=== PATIENT | male | born 1985 | race Caucasian/White ===

== ENCOUNTER 2018-02-24 09:17 | Inpatient (IN) ==
--- NOTE | 2018-02-24 09:44 | Emergency Department Note ---
Disposition Clinical Impression: Pulmonary emboli Qualifiers: Pulmonary embolism type: other Chronicity: acute Acute cor pulmonale presence: without acute cor pulmonale Qualified Code(s): I26.99 - Other pulmonary embolism without acute cor pulmonale Disposition: Admitted As Inpatient Condition: Fair Referrals: Jo-Ann Lauren CNP [Primary Care Provider] - Forms: ED Satisfaction Letter Time of Disposition: 11:48 General Adult HPI - General Chief complaint: ED Extremity Injury, Upper Stated complaint: swelling hands, legs, back pain Time Seen by Provider: 02/24/18 09:26 Source: patient Limitations: no limitations Nursing Notes Reviewed: Yes Vital Signs Reviewed: Yes - History of Present Illness HPI Narrative: Nontoxic-appearing 32-year-old male presents for multiple complaints. He complains of polyarthralgias of the bilateral wrists, hips, knees, and ankles without injury. He complains of swelling of the bilateral hands as well as numbness and tingling of the hands. He also complains of pain with inspiration but denies any shortness of breath, cough, or hemoptysis. He denies any fevers or rashes. He denies any abdominal pain, nausea, vomiting, or diarrhea. Onset (ago): day(s) Pain Severity: severe Pain Scale: 10 Quality: sharp Consistency: Worsening Improves with: nothing Worsens with: movement Associated symptoms: Denies: cough, diaphoresis, fever/chills, nausea/vomiting, rash, shortness of breath - Related Data Home Medications Medication Instructions Recorded Confirmed Escitalopram [Lexapro] 10 mg PO DAILY 08/28/17 08/28/17 SitaGLIPtin [Januvia] 100 mg PO DAILY 08/28/17 08/28/17 Zolpidem [Ambien] 10 mg PO HS PRN 08/28/17 08/28/17 Previous Rx's Medication Instructions Recorded OxyCODONE/APAP 10/325 [Percocet 1 each PO Q6HR PRN #24 tablet 08/28/17 10/325 MG] Allergies Allergy/AdvReac Type Severity Reaction Status Date / Time No Known Allergies Allergy Verified 08/28/17 12:23 All systems ED: reviewed and negative except as stated. Constitutional: Denies: fever, chills, weakness, weight change Eyes: Denies: eye pain, eye discharge, vision change ENT ED: Denies: ear pain, throat pain, dental pain, hearing loss, epistaxis, congestion, dysphagia Cardiovascular: Denies: chest pain, palpitations, dyspnea on exertion, edema, syncope Respiratory: Denies: cough, dyspnea, wheezes, hemoptysis, stridor Gastrointestinal: Denies: abdominal pain, nausea, vomiting, diarrhea, constipation, hematemesis, melena, hematochezia Genitourinary: Denies: urgency, dysuria, frequency, hematuria Musculoskeletal: Reports: as per HPI, arthralgia, other (Bilateral hand swelling ). Denies: back pain, neck pain, myalgia Integumentary: Denies: rash, abrasion, lesions Neurological: Denies: headache, weakness, numbness, paresthesias, confusion, abnormal gait, vertigo Psychiatric: Denies: anxiety, depression, suicidal thoughts, homicidal thoughts , auditory hallucinations, visual hallucinations Endocrine: Denies: fatigue Hematological/Lymphatic: Denies: easy bleeding, easy bruising Allergic/Immunologic: Denies: facial swelling, urticaria Past Medical History - Past Medical History Attestation: Yes The following information was validated with the patient. Source: patient, nursing notes reviewed Medical history: Reports: arthritis, diabetes, hypertension Surgical history: Reports: other Psychiatric history: Reports: depression - Social History Smoking Status: Never smoker Smokeless Tobacco Status: No Alcohol use: Reports: none Drug use: Reports: none Physical Exam - General Limitations: no limitations General appearance: alert, appears intoxicated - Head Head exam: atraumatic, normocephalic, normal inspection - Eye Eye exam: Present: normal appearance, PERRL, EOMI. Absent: nystagmus - ENT ENT exam: mucous membranes moist - Neck Neck exam: Present: normal inspection, full ROM, trachea midline - Chest Chest inspection: Present: normal inspection, symmetric chest wall rise - Respiratory Respiratory exam: Present: normal lung sounds bilaterally. Absent: respiratory distress, wheezes, stridor, accessory muscle use, prolonged expiratory phase - Cardiovascular Cardiovascular exam: Present: regular rate, normal rhythm, normal heart sounds - Abdominal Exam Abdominal exam: Present: soft, normal bowel sounds. Absent: tenderness, distention, guarding, rebound - Extremities Exam Extremities exam: Present: normal inspection, full ROM, pedal edema (1+ pretibial edema noted bilaterally). Absent: tenderness - Neurological Exam Neurological exam: Present: alert, oriented X3 - Psychiatric Psychiatric exam: Present: normal affect, normal mood - Skin Skin exam: Present: warm, dry, intact, normal color. Absent: rash Course Course Narrative: 1147: I spoke with Dr. Cannon of the hospitalist services accepted the patient for admission. I discussed this plan with Dr. Tk Jackson. Dr. Tk Jackson has had a [id number] evaluation with patient and agrees with this plan. Vital Signs Temperature 97.4 F L 02/24/18 09:20 Pulse Rate 82 02/24/18 09:20 Respiratory Rate 18 02/24/18 09:20 Blood Pressure 123/78 02/24/18 09:20 O2 Sat by Pulse Oximetry 95 02/24/18 09:20 Temperature 97.4 F L 02/24/18 09:25 Pulse Rate 93 02/24/18 10:58 Respiratory Rate 18 02/24/18 10:58 Blood Pressure 153/79 02/24/18 10:58 O2 Sat by Pulse Oximetry 98 02/24/18 10:58 Oxygen Delivery Oxygen Delivery Room Air Medical Decision Making - Medical Records Medical records reviewed: Yes I reviewed the patient's medical records. - Lab Data Lab results reviewed: Yes I reviewed the patient's lab results. Result diagrams: 02/24/18 09:37 02/24/18 09:37 Lab Results 02/24/18 02/24/18 02/24/18 Range/Units 09:37 09:37 09:37 WBC 9.4 (4.3-11.1) K/mcL RBC 4.44 (4.19-5.50) M/mcL Hgb 13.4 (12.9-16.9) g/dL Hct 38.4 (37.5-50.1) % MCV 86.5 (83.0-100.0) fL MCH 30.2 (28.0-33.3) pg MCHC 34.9 (31.6-35.5) g/dL RDW 13.7 (11.5-14.5) % Plt Count 249 (140-400) K/mcL MPV 8.9 L (9.4-12.4) fL Immature Gran % 0.3 (0-4) % Seg Neutrophils % 62.0 % Lymphocytes % 25.5 % Monocytes % 11.1 % Eosinophils % 0.7 % Basophils % 0.4 % Neutrophils # 5.8 (1.6-8.9) K/mcL Lymphocytes # 2.4 (0.6-4.6) K/mcL Monocytes # 1.0 (0.0-1.3) K/mcL Eosinophils # 0.1 (0.0-0.6) K/mcL Basophils # 0.0 (0.0-0.2) K/mcL ESR 66 H (0-10) mm/hr D-Dimer 4995 H (0-500) ng/mLFEU Sodium (136-145) mEq/L Potassium (3.5-5.1) mEq/L Chloride (98-107) mEq/L Carbon Dioxide (23-29) mEq/L BUN (6-20) mg/dL Creatinine (0.70-1.30) mg/dL Est GFR ( Amer) (> 60) Est GFR (Non-Af Amer) (> 60) BUN/Creatinine Ratio (6-26) Glucose (70-105) mg/dL Calculated Osmolality (280-300) Lactic Acid (0.5-2.2) mmol/L Calcium (8.6-10.3) mg/dL Total Bilirubin (0.3-1.0) mg/dL AST (13-39) Units/L ALT (7-52) Units/L Alkaline Phosphatase (34-104) Units/L Creatine Kinase (30-223) Units/L Troponin I (< 0.04) ng/mL C-Reactive Protein (Less than 10) mg/L B-Natriuretic Peptide (Less than 100) pg/mL Serum Total Protein (6.4-8.9) g/dL Albumin (3.5-5.7) g/dL Globulin (2.4-3.5) g/dL Albumin/Globulin Ratio (1.1-2.2) Urine Color (Yellow) Urine Clarity (Clear) Urine pH (5.0-8.0) pH Units Ur Specific [place] (1.010-1.025) Urine Protein (Neg-Trace) mg/dL Urine Glucose (UA) (Normal) mg/dL Urine Ketones (Negative) mg/dL Urine Blood (Negative) Urine Nitrite (Negative) Urine Bilirubin (Negative) Urine Urobilinogen (Normal) mg/dL Ur Leukocyte Esterase (Negative) Urine Microscopic RBC (0-3) per hpf Urine Microscopic WBC (0-3) per hpf Ur Squamous Epith Cells (None-Few) per lpf Urine Bacteria (None-Few) per hpf Hyaline Casts (None-Few) per lpf Ur Culture Indicated? (NO) 02/24/18 02/24/18 02/24/18 Range/Units 09:37 09:37 09:51 WBC (4.3-11.1) K/mcL RBC (4.19-5.50) M/mcL Hgb (12.9-16.9) g/dL Hct (37.5-50.1) % MCV (83.0-100.0) fL MCH (28.0-33.3) pg MCHC (31.6-35.5) g/dL RDW (11.5-14.5) % Plt Count (140-400) K/mcL MPV (9.4-12.4) fL Immature Gran % (0-4) % Seg Neutrophils % % Lymphocytes % % Monocytes % % Eosinophils % % Basophils % % Neutrophils # (1.6-8.9) K/mcL Lymphocytes # (0.6-4.6) K/mcL Monocytes # (0.0-1.3) K/mcL Eosinophils # (0.0-0.6) K/mcL Basophils # (0.0-0.2) K/mcL ESR (0-10) mm/hr D-Dimer (0-500) ng/mLFEU Sodium 132 L (136-145) mEq/L Potassium 3.9 (3.5-5.1) mEq/L Chloride 102 (98-107) mEq/L Carbon Dioxide 23 (23-29) mEq/L BUN 13 (6-20) mg/dL Creatinine 0.73 (0.70-1.30) mg/dL Est GFR ( Amer) > 60 (> 60) Est GFR (Non-Af Amer) > 60 (> 60) BUN/Creatinine Ratio 18 (6-26) Glucose 161 H (70-105) mg/dL Calculated Osmolality 278 L (280-300) Lactic Acid 0.9 (0.5-2.2) mmol/L Calcium 8.8 (8.6-10.3) mg/dL Total Bilirubin 0.6 (0.3-1.0) mg/dL AST 15 (13-39) Units/L ALT 20 (7-52) Units/L Alkaline Phosphatase 61 (34-104) Units/L Creatine Kinase 95 (30-223) Units/L Troponin I < 0.03 (< 0.04) ng/mL C-Reactive Protein 108 H (Less than 10) mg/L B-Natriuretic Peptide 19 (Less than 100) pg/mL Serum Total Protein 7.8 (6.4-8.9) g/dL Albumin 3.7 (3.5-5.7) g/dL Globulin 4.1 H (2.4-3.5) g/dL Albumin/Globulin Ratio 0.9 L (1.1-2.2) Urine Color (Yellow) Urine Clarity (Clear) Urine pH (5.0-8.0) pH Units Ur Specific [place] (1.010-1.025) Urine Protein (Neg-Trace) mg/dL Urine Glucose (UA) (Normal) mg/dL Urine Ketones (Negative) mg/dL Urine Blood (Negative) Urine Nitrite (Negative) Urine Bilirubin (Negative) Urine Urobilinogen (Normal) mg/dL Ur Leukocyte Esterase (Negative) Urine Microscopic RBC (0-3) per hpf Urine Microscopic WBC (0-3) per hpf Ur Squamous Epith Cells (None-Few) per lpf Urine Bacteria (None-Few) per hpf Hyaline Casts (None-Few) per lpf Ur Culture Indicated? (NO) 02/24/18 Range/Units 10:06 WBC (4.3-11.1) K/mcL RBC (4.19-5.50) M/mcL Hgb (12.9-16.9) g/dL Hct (37.5-50.1) % MCV (83.0-100.0) fL MCH (28.0-33.3) pg MCHC (31.6-35.5) g/dL RDW (11.5-14.5) % Plt Count (140-400) K/mcL MPV (9.4-12.4) fL Immature Gran % (0-4) % Seg Neutrophils % % Lymphocytes % % Monocytes % % Eosinophils % % Basophils % % Neutrophils # (1.6-8.9) K/mcL Lymphocytes # (0.6-4.6) K/mcL Monocytes # (0.0-1.3) K/mcL Eosinophils # (0.0-0.6) K/mcL Basophils # (0.0-0.2) K/mcL ESR (0-10) mm/hr D-Dimer (0-500) ng/mLFEU Sodium (136-145) mEq/L Potassium (3.5-5.1) mEq/L Chloride (98-107) mEq/L Carbon Dioxide (23-29) mEq/L BUN (6-20) mg/dL Creatinine (0.70-1.30) mg/dL Est GFR ( Amer) (> 60) Est GFR (Non-Af Amer) (> 60) BUN/Creatinine Ratio (6-26) Glucose (70-105) mg/dL Calculated Osmolality (280-300) Lactic Acid (0.5-2.2) mmol/L Calcium (8.6-10.3) mg/dL Total Bilirubin (0.3-1.0) mg/dL AST (13-39) Units/L ALT (7-52) Units/L Alkaline Phosphatase (34-104) Units/L Creatine Kinase (30-223) Units/L Troponin I (< 0.04) ng/mL C-Reactive Protein (Less than 10) mg/L B-Natriuretic Peptide (Less than 100) pg/mL Serum Total Protein (6.4-8.9) g/dL Albumin (3.5-5.7) g/dL Globulin (2.4-3.5) g/dL Albumin/Globulin Ratio (1.1-2.2) Urine Color Dark Yellow (Yellow) Urine Clarity Clear (Clear) Urine pH 5.5 (5.0-8.0) pH Units Ur Specific [place] 1.030 H (1.010-1.025) Urine Protein Trace (Neg-Trace) mg/dL Urine Glucose (UA) Normal (Normal) mg/dL Urine Ketones Trace H (Negative) mg/dL Urine Blood Negative (Negative) Urine Nitrite Negative (Negative) Urine Bilirubin Negative (Negative) Urine Urobilinogen Normal (Normal) mg/dL Ur Leukocyte Esterase Negative (Negative) Urine Microscopic RBC 0-3 (0-3) per hpf Urine Microscopic WBC 5-15 H (0-3) per hpf Ur Squamous Epith Cells Many H (None-Few) per lpf Urine Bacteria None Seen (None-Few) per hpf Hyaline Casts Few (None-Few) per lpf Ur Culture Indicated? NO (NO) - Radiology Data Radiology results reviewed: Yes I reviewed the patient's radiology results. - EKG Data EKG #1 EKG attestation: Yes I reviewed and interpreted this EKG. EKG results narrative: EKG reviewed by Dr. Terence Jackson as well. EKG shows a sinus rhythm at a rate of 83 bpm. DE interval 172, QRS duration 105, QT/QTc interval 347/387. No ectopy noted. No STEMI. HEENT is when compared to an EKG dated from 08/13/17.
[2018-02-24 10:08] LABS: Basophils % 0.4 %; Eosinophils # 0.1 K/mcL (0.0-0.6); Eosinophils % 0.7 %; Hematocrit 38.4 % (37.5-50.1); Hemoglobin 13.4 g/dL (12.9-16.9); Immature Granulocytes % 0.3 % (0-4); Lymphocytes # 2.4 K/mcL (0.6-4.6); Lymphocytes % 25.5 %; Mean Corpuscular HGB Conc 34.9 g/dL (31.6-35.5); Mean Corpuscular Hemoglobin 30.2 pg (28.0-33.3); Mean Corpuscular Volume 86.5 fL (83.0-100.0); Mean Platelet Volume 8.9 fL (9.4-12.4); Monocytes % 11.1 %; Neutrophils # 5.8 K/mcL (1.6-8.9); Platelet Count 249 K/mcL (140-400); Red Blood Count 4.44 M/mcL (4.19-5.50); Red Cell Distribution Width 13.7 % (11.5-14.5)
[2018-02-24 10:18] LABS: Bilirubin,Urine Negative (Negative); Blood,Urine Negative (Negative); Clarity,Urine Clear (Clear); Color,Urine Dark Yellow (Yellow); Glucose,Urine (UA) Normal (Normal); Ketones,Urine Trace mg/dL (Negative); Leukocyte Esterase,Urine Negative (Negative); Nitrite,Urine Negative (Negative); PH,Urine 5.5 pH Units (5.0-8.0); Protein,Urine Trace mg/dL (Neg-Trace); Urobilinogen,Urine Normal (Normal)
[2018-02-24 10:23] LABS: Bacteria,Urine None Seen per hpf (None-Few); Hyaline Casts,Urine Few per lpf (None-Few); RBC,Urine 0-3 per hpf (0-3); Squamous Epithelial Cell,Urine Many per lpf (None-Few)
[2018-02-24] MEDS ORDERED: Isovue-370 500 ML INFUS..BTL IV ONE (10:26)
[2018-02-24 10:29] LABS: Troponin I < 0.03 ng/mL (< 0.04)
[2018-02-24 10:31] LABS: Alanine Aminotransferase 20 Units/L (7-52); Albumin 3.7 g/dL (3.5-5.7); Albumin/Globulin Ratio 0.9 (1.1-2.2); Alkaline Phosphatase 61 Units/L (34-104); Aspartate Amino Transferase 15 Units/L (13-39); BUN/Creatinine Ratio 18 (6-26); Bilirubin,Total 0.6 mg/dL (0.3-1.0); Blood Urea Nitrogen 13 mg/dL (6-20); Calcium 8.8 mg/dL (8.6-10.3); Carbon Dioxide 23 mEq/L (23-29); Chloride 102 mEq/L (98-107); Creatine Kinase 95 Units/L (30-223); Globulin 4.1 g/dL (2.4-3.5); Glucose 161 mg/dL (70-105); Osmolality,Calculated 278 (280-300); Potassium 3.9 mEq/L (3.5-5.1); Sodium 132 mEq/L (136-145); Total Protein 7.8 g/dL (6.4-8.9); eGFR For African Americans > 60 (> 60); eGFR For Non-African Americans > 60 (> 60)
[2018-02-24 11:01] LABS: C-Reactive Protein 108 mg/L (Less than 10)
[2018-02-24] MEDS ORDERED: *HR* Heparin 5,000 UNIT/ML VIAL IVP PRN ×2 (11:32)
[2018-02-24] MEDS ORDERED: *HR* Heparin 5,000 UNIT/ML VIAL IVP ONE (11:32)
--- NOTE | 2018-02-24 11:39 | Emergency Department Note ---
Disposition Clinical Impression: Pulmonary emboli Qualifiers: Pulmonary embolism type: other Chronicity: acute Acute cor pulmonale presence: without acute cor pulmonale Qualified Code(s): I26.99 - Other pulmonary embolism without acute cor pulmonale Disposition: Admitted As Inpatient Forms: ED Satisfaction Letter General Adult HPI - General Chief complaint: ED Extremity Injury, Upper Stated complaint: swelling hands, legs, back pain Time Seen by Provider: 02/24/18 09:26 Source: patient Limitations: no limitations - History of Present Illness Pain Scale: 10 Quality: sharp Improves with: nothing Worsens with: movement Associated symptoms: Denies: cough, diaphoresis, fever/chills, nausea/vomiting, rash, shortness of breath - Related Data Home Medications Medication Instructions Recorded Confirmed Escitalopram [Lexapro] 10 mg PO DAILY 08/28/17 08/28/17 SitaGLIPtin [Januvia] 100 mg PO DAILY 08/28/17 08/28/17 Zolpidem [Ambien] 10 mg PO HS PRN 08/28/17 08/28/17 Previous Rx's Medication Instructions Recorded OxyCODONE/APAP 10/325 [Percocet 1 each PO Q6HR PRN #24 tablet 08/28/17 10/325 MG] Allergies Allergy/AdvReac Type Severity Reaction Status Date / Time No Known Allergies Allergy Verified 08/28/17 12:23 Constitutional: Denies: fever, chills, weakness, weight change Eyes: Denies: eye pain, eye discharge, vision change ENT ED: Denies: ear pain, throat pain, dental pain, hearing loss, epistaxis, congestion, dysphagia Cardiovascular: Denies: chest pain, palpitations, dyspnea on exertion, edema, syncope Respiratory: Denies: cough, dyspnea, wheezes, hemoptysis, stridor Gastrointestinal: Denies: abdominal pain, nausea, vomiting, diarrhea, constipation, hematemesis, melena, hematochezia Genitourinary: Denies: urgency, dysuria, frequency, hematuria Musculoskeletal: Reports: as per HPI, arthralgia, other (Bilateral hand swelling ). Denies: back pain, neck pain, myalgia Integumentary: Denies: rash, abrasion, lesions Neurological: Denies: headache, weakness, numbness, paresthesias, confusion, abnormal gait, vertigo Psychiatric: Denies: anxiety, depression, suicidal thoughts, homicidal thoughts , auditory hallucinations, visual hallucinations Endocrine: Denies: fatigue Hematological/Lymphatic: Denies: easy bleeding, easy bruising Allergic/Immunologic: Denies: facial swelling, urticaria Past Medical History - Past Medical History Medical history: Reports: arthritis, diabetes, hypertension Surgical history: Reports: other Psychiatric history: Reports: depression - Social History Smoking Status: Never smoker Smokeless Tobacco Status: No Alcohol use: Reports: none Drug use: Reports: none Physical Exam - General Limitations: no limitations General appearance: alert, appears intoxicated Course Vital Signs Temperature 97.4 F L 02/24/18 09:20 Pulse Rate 82 02/24/18 09:20 Respiratory Rate 18 02/24/18 09:20 Blood Pressure 123/78 02/24/18 09:20 O2 Sat by Pulse Oximetry 95 02/24/18 09:20 Temperature 97.4 F L 02/24/18 09:25 Pulse Rate 93 02/24/18 10:58 Respiratory Rate 18 02/24/18 10:58 Blood Pressure 153/79 02/24/18 10:58 O2 Sat by Pulse Oximetry 98 02/24/18 10:58 Oxygen Delivery Oxygen Delivery Room Air Medical Decision Making - Lab Data Result diagrams: 02/24/18 09:37 02/24/18 09:37 Lab Results 02/24/18 02/24/18 02/24/18 Range/Units 09:37 09:37 09:37 WBC 9.4 (4.3-11.1) K/mcL RBC 4.44 (4.19-5.50) M/mcL Hgb 13.4 (12.9-16.9) g/dL Hct 38.4 (37.5-50.1) % MCV 86.5 (83.0-100.0) fL MCH 30.2 (28.0-33.3) pg MCHC 34.9 (31.6-35.5) g/dL RDW 13.7 (11.5-14.5) % Plt Count 249 (140-400) K/mcL MPV 8.9 L (9.4-12.4) fL Immature Gran % 0.3 (0-4) % Seg Neutrophils % 62.0 % Lymphocytes % 25.5 % Monocytes % 11.1 % Eosinophils % 0.7 % Basophils % 0.4 % Neutrophils # 5.8 (1.6-8.9) K/mcL Lymphocytes # 2.4 (0.6-4.6) K/mcL Monocytes # 1.0 (0.0-1.3) K/mcL Eosinophils # 0.1 (0.0-0.6) K/mcL Basophils # 0.0 (0.0-0.2) K/mcL ESR 66 H (0-10) mm/hr D-Dimer 4995 H (0-500) ng/mLFEU Sodium (136-145) mEq/L Potassium (3.5-5.1) mEq/L Chloride (98-107) mEq/L Carbon Dioxide (23-29) mEq/L BUN (6-20) mg/dL Creatinine (0.70-1.30) mg/dL Est GFR ( Amer) (> 60) Est GFR (Non-Af Amer) (> 60) BUN/Creatinine Ratio (6-26) Glucose (70-105) mg/dL Calculated Osmolality (280-300) Lactic Acid (0.5-2.2) mmol/L Calcium (8.6-10.3) mg/dL Total Bilirubin (0.3-1.0) mg/dL AST (13-39) Units/L ALT (7-52) Units/L Alkaline Phosphatase (34-104) Units/L Creatine Kinase (30-223) Units/L Troponin I (< 0.04) ng/mL C-Reactive Protein (Less than 10) mg/L B-Natriuretic Peptide (Less than 100) pg/mL Serum Total Protein (6.4-8.9) g/dL Albumin (3.5-5.7) g/dL Globulin (2.4-3.5) g/dL Albumin/Globulin Ratio (1.1-2.2) Urine Color (Yellow) Urine Clarity (Clear) Urine pH (5.0-8.0) pH Units Ur Specific [place] (1.010-1.025) Urine Protein (Neg-Trace) mg/dL Urine Glucose (UA) (Normal) mg/dL Urine Ketones (Negative) mg/dL Urine Blood (Negative) Urine Nitrite (Negative) Urine Bilirubin (Negative) Urine Urobilinogen (Normal) mg/dL Ur Leukocyte Esterase (Negative) Urine Microscopic RBC (0-3) per hpf Urine Microscopic WBC (0-3) per hpf Ur Squamous Epith Cells (None-Few) per lpf Urine Bacteria (None-Few) per hpf Hyaline Casts (None-Few) per lpf Ur Culture Indicated? (NO) 02/24/18 02/24/18 02/24/18 Range/Units 09:37 09:37 09:51 WBC (4.3-11.1) K/mcL RBC (4.19-5.50) M/mcL Hgb (12.9-16.9) g/dL Hct (37.5-50.1) % MCV (83.0-100.0) fL MCH (28.0-33.3) pg MCHC (31.6-35.5) g/dL RDW (11.5-14.5) % Plt Count (140-400) K/mcL MPV (9.4-12.4) fL Immature Gran % (0-4) % Seg Neutrophils % % Lymphocytes % % Monocytes % % Eosinophils % % Basophils % % Neutrophils # (1.6-8.9) K/mcL Lymphocytes # (0.6-4.6) K/mcL Monocytes # (0.0-1.3) K/mcL Eosinophils # (0.0-0.6) K/mcL Basophils # (0.0-0.2) K/mcL ESR (0-10) mm/hr D-Dimer (0-500) ng/mLFEU Sodium 132 L (136-145) mEq/L Potassium 3.9 (3.5-5.1) mEq/L Chloride 102 (98-107) mEq/L Carbon Dioxide 23 (23-29) mEq/L BUN 13 (6-20) mg/dL Creatinine 0.73 (0.70-1.30) mg/dL Est GFR ( Amer) > 60 (> 60) Est GFR (Non-Af Amer) > 60 (> 60) BUN/Creatinine Ratio 18 (6-26) Glucose 161 H (70-105) mg/dL Calculated Osmolality 278 L (280-300) Lactic Acid 0.9 (0.5-2.2) mmol/L Calcium 8.8 (8.6-10.3) mg/dL Total Bilirubin 0.6 (0.3-1.0) mg/dL AST 15 (13-39) Units/L ALT 20 (7-52) Units/L Alkaline Phosphatase 61 (34-104) Units/L Creatine Kinase 95 (30-223) Units/L Troponin I < 0.03 (< 0.04) ng/mL C-Reactive Protein 108 H (Less than 10) mg/L B-Natriuretic Peptide 19 (Less than 100) pg/mL Serum Total Protein 7.8 (6.4-8.9) g/dL Albumin 3.7 (3.5-5.7) g/dL Globulin 4.1 H (2.4-3.5) g/dL Albumin/Globulin Ratio 0.9 L (1.1-2.2) Urine Color (Yellow) Urine Clarity (Clear) Urine pH (5.0-8.0) pH Units Ur Specific [place] (1.010-1.025) Urine Protein (Neg-Trace) mg/dL Urine Glucose (UA) (Normal) mg/dL Urine Ketones (Negative) mg/dL Urine Blood (Negative) Urine Nitrite (Negative) Urine Bilirubin (Negative) Urine Urobilinogen (Normal) mg/dL Ur Leukocyte Esterase (Negative) Urine Microscopic RBC (0-3) per hpf Urine Microscopic WBC (0-3) per hpf Ur Squamous Epith Cells (None-Few) per lpf Urine Bacteria (None-Few) per hpf Hyaline Casts (None-Few) per lpf Ur Culture Indicated? (NO) 02/24/18 Range/Units 10:06 WBC (4.3-11.1) K/mcL RBC (4.19-5.50) M/mcL Hgb (12.9-16.9) g/dL Hct (37.5-50.1) % MCV (83.0-100.0) fL MCH (28.0-33.3) pg MCHC (31.6-35.5) g/dL RDW (11.5-14.5) % Plt Count (140-400) K/mcL MPV (9.4-12.4) fL Immature Gran % (0-4) % Seg Neutrophils % % Lymphocytes % % Monocytes % % Eosinophils % % Basophils % % Neutrophils # (1.6-8.9) K/mcL Lymphocytes # (0.6-4.6) K/mcL Monocytes # (0.0-1.3) K/mcL Eosinophils # (0.0-0.6) K/mcL Basophils # (0.0-0.2) K/mcL ESR (0-10) mm/hr D-Dimer (0-500) ng/mLFEU Sodium (136-145) mEq/L Potassium (3.5-5.1) mEq/L Chloride (98-107) mEq/L Carbon Dioxide (23-29) mEq/L BUN (6-20) mg/dL Creatinine (0.70-1.30) mg/dL Est GFR ( Amer) (> 60) Est GFR (Non-Af Amer) (> 60) BUN/Creatinine Ratio (6-26) Glucose (70-105) mg/dL Calculated Osmolality (280-300) Lactic Acid (0.5-2.2) mmol/L Calcium (8.6-10.3) mg/dL Total Bilirubin (0.3-1.0) mg/dL AST (13-39) Units/L ALT (7-52) Units/L Alkaline Phosphatase (34-104) Units/L Creatine Kinase (30-223) Units/L Troponin I (< 0.04) ng/mL C-Reactive Protein (Less than 10) mg/L B-Natriuretic Peptide (Less than 100) pg/mL Serum Total Protein (6.4-8.9) g/dL Albumin (3.5-5.7) g/dL Globulin (2.4-3.5) g/dL Albumin/Globulin Ratio (1.1-2.2) Urine Color Dark Yellow (Yellow) Urine Clarity Clear (Clear) Urine pH 5.5 (5.0-8.0) pH Units Ur Specific [place] 1.030 H (1.010-1.025) Urine Protein Trace (Neg-Trace) mg/dL Urine Glucose (UA) Normal (Normal) mg/dL Urine Ketones Trace H (Negative) mg/dL Urine Blood Negative (Negative) Urine Nitrite Negative (Negative) Urine Bilirubin Negative (Negative) Urine Urobilinogen Normal (Normal) mg/dL Ur Leukocyte Esterase Negative (Negative) Urine Microscopic RBC 0-3 (0-3) per hpf Urine Microscopic WBC 5-15 H (0-3) per hpf Ur Squamous Epith Cells Many H (None-Few) per lpf Urine Bacteria None Seen (None-Few) per hpf Hyaline Casts Few (None-Few) per lpf Ur Culture Indicated? NO (NO) Attestation Statement - Attestation Attestation: For this encounter, I have reviewed the FANCY SEWER or PA documentation, treatment plan, and medical decision making; and I have had face to face time with this patient. 32 year old male presents to the ED with complaints of hand swelling. AFter thorough workup it appears that he has multifocal pulmonary emboli. WE will start heparin therapy and admit to medicine
[2018-02-24] MEDS ORDERED: *HR* OxyCODONE Immed Rel 5 MG TABLET PO PRN (11:58)
[2018-02-24] MEDS ORDERED: Naloxone 0.4 MG/ML INJ IVP PRN (11:58)
[2018-02-24] MEDS ORDERED: *HR* Promethazine 25 MG/ML VIAL IVP PRN (11:58)
[2018-02-24] MEDS ORDERED: Acetaminophen 325 MG TABLET PO PRN (11:58)
[2018-02-24] MEDS ORDERED: Ondansetron 4 MG/2 ML VIAL IVP PRN (11:58)
[2018-02-24] MEDS ORDERED: *HR* HYDROcodone/Acet 5/325 mg TABLET PO PRN (11:58)
[2018-02-24] MEDS ORDERED: Ipratropium/Albuterol Neb 3 ML IH PRN (12:07)
[2018-02-24 12:22] LABS: INR 1.3; Prothrombin Time 13.6 Seconds (9.4-12.1)
[2018-02-24 12:25] LABS: Activated Partial Thrombo Time 36.4 Seconds (26.0-36.0)
--- NOTE | 2018-02-24 12:39 | Internal Med History&Physical ---
Date of Encounter: 02/24/18 Time of Encounter: 11:30 Internal Medicine - H&P: HPI Chief complaint: Chest pain, multiple joint pain and swelling Admitted From: Emergency Dept Plans for Post Hospital Care: Home History of present illness: Mr. Kincaid is a 32 year old male morbidly obese patient with no significant past medical history presented emergency room with one week history of multiple joint pain including wrist, bilateral knees and hips which is progressively worsening. Patient also mentioned that from last couple of days has been having chest pain located in the right chest wall region worsening with the deep inspiration. He does have some nausea but denied of any vomiting since. He denied of any recent travel history. He does mention family history of lupus his father and blood clots in his grandfather. He denied of any melena, bright red blood per rectum and hematemesis. Past Med Surg Social Fam HX - Past Medical History Medical history: arthritis, diabetes, hypertension Psychiatric history: depression - Past Surgical History Surgical History: other - Social History Smoking Status: Never smoker Smokeless Tobacco Status: No Alcohol use: none Drug use: none - Family History Father Hx Family Autoimmune Disorders: Yes (Lupus) Grandfather Hx Family Medical Disorders: Yes (DVT) Internal Medicine - H&P: Meds SitaGLIPtin [Januvia] 100 mg PO DAILY 08/28/17 [History] Escitalopram [Lexapro] 20 mg PO DAILY 02/24/18 [History] 3 Allergy/AdvReac Type Severity Reaction Status Date / Time No Known Allergies Allergy Verified 02/24/18 12:16 All Systems PM: A 10-system review of systems was performed and is negative for pertinent findings except as documented above in the HPI. Review of systems: All the systems are reviewed everything is benign except the systems and symptoms I mentioned in the history of present illness - Constitutional Vitals: Temp Pulse Resp BP Pulse Ox 97.4 F L 87 13 165/82 99 02/24/18 09:25 02/24/18 11:51 02/24/18 11:51 02/24/18 11:51 02/24/18 11:51 General appearance: Present: cooperative, mild distress, A&O X 3, answers questions appropriately - Head Head exam: Present: atraumatic, normal inspection - Neck Neck exam general surgery: Present: supple - Respiratory Respiratory exam: Present: decreased breath sounds, respiratory distress (mild) , wheezes (mild). Absent: rales, rhonchi - Cardiovascular Cardiovascular exam: Present: RRR, +S1, +S2. Absent: tachycardia - GI/Abdominal GI/Abdominal exam: Present: normal bowel sounds, soft. Absent: rebound, rigid, tenderness - Extremities Exam Extremities exam: Present: joint swelling (both wrist, proximal digital joints) , tenderness. Absent: calf tenderness, pedal edema - Back Exam Back exam: Absent: CVA tenderness (L), CVA tenderness (R) - Neurological Exam Neurological exam: Present: alert, oriented X3 - Psychiatric Psychiatric exam: Present: normal affect, normal mood - Skin Skin exam: Absent: rash Internal Med - H&P Results - Labs CBC & Chem 7: 02/24/18 09:37 02/24/18 09:37 - Assessment and plan (1) Pulmonary emboli Current Visit: Yes Status: Acute Assessment and plan: Admit the pt into Tele Reviewed Labs, and Imaging studies CTA of chest showed multi focal PE both Rt and Left Multi focal Rt hilar adenopathy Questionable infraction in RML Non provocative PE could be due to underline auto immune process ordered hyper coag panel also ordered Rh factor, VDRL, TIAGO and Lupus On CT no RV strain noticed 2D Echo ordered Heparin gtt started Pulmonary consulted Venous doppler of both legs ordered in the ER Qualifiers: Pulmonary embolism type: other Chronicity: acute Acute cor pulmonale presence: without acute cor pulmonale Qualified Code(s): I26.99 - Other pulmonary embolism without acute cor pulmonale (2) Chest pain Current Visit: Yes Status: Acute Assessment and plan: Due to PE Reviewed EKG showed NSR, and incomplete RBBB trend on Troponin 2 D Echo ordered Qualifiers: Chest pain type: unspecified Qualified Code(s): R07.9 - Chest pain, unspecified (3) Polymyalgia Current Visit: Yes Status: Acute Assessment and plan: His presentation concerning for polymyalgia rheumatica lab work ordered including CCP will check Vit D level and CPK Rheumatology consulted (4) Morbid obesity with BMI of 45.0-49.9, adult Current Visit: Yes Status: Acute Assessment and plan: Counseled to loose weight - Time Spent With Patient Total time spent is greater than 50% in coordination of care (as documented) at patient's floor/unit and/or counseling patient:
--- NOTE | 2018-02-24 12:48 | Pulmonology Consult Note ---
Date of Encounter: 02/24/18 Time of Encounter: 12:30 Assessment and Plan (1) Mediastinal lymphadenopathy Current Visit: Yes Status: Acute Patient in the CT scan which showed some mediastinal LN and with bilateral hilar LN can be reactive due to infection for possible secondary to infectious arthritis or secondary to inflammatory cause like autoimmune disease with pending work up , less likely due to neoplastic like lymphoma except for hilar LN there is no clinical or radiological evidence of sarcoidosis . Since the patient suffered PE with pulmonary infarction at the moment the anticoagulation is more important this time once he is stable as an outpatient will repeat imaging if there is persistent LN in mediastinum and hilar region will consider doing EBUS TBNA . (2) Pulmonary emboli Current Visit: Yes Status: Acute Patient multiple lobar arteries filling defect most suggestive of PE . Agree with IV heparin on discharged patient can discharged on one of newer oral anticoagulants . Will follow up in outpatient pulmonology . Qualifiers: Pulmonary embolism type: other Chronicity: unspecified Acute cor pulmonale presence: without acute cor pulmonale Qualified Code(s): I26.99 - Other pulmonary embolism without acute cor pulmonale (3) Inflammatory arthritis Current Visit: Yes Status: Acute Infectious Vs Inflammatory pending work up . Rheumatology following (4) Sleep disorder breathing Current Visit: Yes Status: Acute Will need outpatient evaluation . 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 he was going to PCP for low back pain evaluation , denies any neck pain but had some bilateral hip pain , denies any fever or chills , denies any other constitutional symptoms , denies any cough or sputum production , denies any undue shortness of breadth , but had some chest pain /discomfort on inspiration CTA was done in ED which showed bilateral multiple small pulmonary emboli with lobar branches of pulmonary artery , has some mediastinal LN and subcarinal LN , denies any skin lesions suggestive of erythema nodosum , denies any eyes symptoms , denies any GERD symptoms , denies any head ache or neuro symptoms . Patient has symptoms of sleep disordered breathing . Pulmonary was consulted for evaluation of mediastinal LN and Hilar LN Past Med Surg Social Fam HX - Past Medical History Medical history: arthritis, diabetes, hypertension Psychiatric history: depression - Past Surgical History Surgical History: other - Social History Smoking Status: Never smoker Smokeless Tobacco Status: No Alcohol use: none Drug use: none - Family History Father Hx Family Autoimmune Disorders: Yes (Lupus) Grandfather Hx Family Medical Disorders: Yes (DVT) Medications and Allergies SitaGLIPtin [Januvia] 100 mg PO DAILY 08/28/17 [History] Escitalopram [Lexapro] 20 mg PO DAILY 02/24/18 [History] 3 Allergy/AdvReac Type Severity Reaction Status Date / Time No Known Allergies Allergy Verified 02/24/18 12:16 All Systems: The remainder of the systems were reviewed and are negative Physical Examination Auscultation: bilateral: clear Musculoskeletal: joint inflammation (left wrist ), joint tenderness (left wrist ) Results - Laboratory Findings CBC and BMP: 02/24/18 09:37 02/24/18 09:37 PT/INR, D-dimer PT 13.6 Seconds (9.4-12.1) H 02/24/18 09:37 D-Dimer 4995 ng/mLFEU (0-500) H 02/24/18 09:37 Abnormal lab findings: Abnormal lab results MPV 8.9 fL (9.4-12.4) L 02/24/18 09:37 ESR 66 mm/hr (0-10) H 02/24/18 09:37 PT 13.6 Seconds (9.4-12.1) H 02/24/18 09:37 APTT 36.4 Seconds (26.0-36.0) H 02/24/18 09:37 D-Dimer 4995 ng/mLFEU (0-500) H 02/24/18 09:37 Sodium 132 mEq/L (136-145) L 02/24/18 09:37 Glucose 161 mg/dL (70-105) H 02/24/18 09:37 Calculated Osmolality 278 (280-300) L 02/24/18 09:37 C-Reactive Protein 108 mg/L (Less than 10) H 02/24/18 09:37 Globulin 4.1 g/dL (2.4-3.5) H 02/24/18 09:37 Albumin/Globulin Ratio 0.9 (1.1-2.2) L 02/24/18 09:37 Ur Specific [place] 1.030 (1.010-1.025) H 02/24/18 10:06 Urine Ketones Trace mg/dL (Negative) H 02/24/18 10:06 Urine Microscopic WBC 5-15 per hpf (0-3) H 02/24/18 10:06 Ur Squamous Epith Cells Many per lpf (None-Few) H 02/24/18 10:06 Consult Discharge Plan - Plan Referrals: Jo-Ann Lauren, WILDERNESS GUIDE [Primary Care Provider] -
[2018-02-24] MEDS: Heparin 25,000 UNIT/500 ML D5W 25,000 UNIT/500 ML BAG IVC SCH (13:38)
[2018-02-24 14:14] LABS: Thyroid Stimulating Hormone 1.538 mcIU/mL (0.340-5.600)
--- NOTE | 2018-02-24 17:07 | Rheumatology Consult Note ---
Date of Encounter: 02/24/18 Time of Encounter: 16:15 Rheumatology Assess and Plan (1) Inflammatory arthritis Current Visit: Yes Status: Acute New onset inflammatory arthritis which appears clinically like tenosynovitis of the upper extremities. Given the 1 week onset, agree with the blood cultures for infectious workup; will also add parvovirus studies. Autoimmune serologies pending: RF, CCP, TIAGO. Xrays reports reviewed. No clinical history otherwise supportive of other inflammatory conditions right now but will continue to monitor. No clinical history of gout but will add uric acid. I discussed the case with the primary hostpitalist, Dr. Cannon and I think he would benefit from prednisone for symptom control: prednisone 40 mg x 1 now then 20 mg daily for 1-2 weeks. (2) Pulmonary emboli Current Visit: Yes Status: Acute First occurrence; hypercoagulable workup pending. On anticoagulation. Qualifiers: Pulmonary embolism type: other Chronicity: unspecified Acute cor pulmonale presence: without acute cor pulmonale Qualified Code(s): I26.99 - Other pulmonary embolism without acute cor pulmonale (3) On prednisone therapy Current Visit: Yes Status: Acute Reports history of diabetes and on blood thinner. Please provide GI prophylaxis while on this combination and avoid NSAIDS. Close monitoring of blood glucose levels. Rheumatology HPI Consult date: 02/24/18 Requesting physician: Sarwat Cannon Consult reason: Arthritis Chief complaint: Arthritis History of present illness: Mr. Kincaid is a 32 year old male with PMH of HTN, DM who presents to [facility] with joint pain and pulmonary embolism. Spencer was in his normal state of health until 1 week ago he had new onset back pain, swelling in his wrists, fingers with pain in his knees and ankles. This was a new onset of pain that he has not had before; it was described as a severe and constant ache, worse with movement and not improved with any activities. He has no history of gout, psoriasis or swollen joints prior. He also started having pain with deep breathing. He has no history of a blood clot. At [place], he was found to have a pulmonary embolism and was then placed on anticoagulation. No recent travel, trauma or viral illness. Past Med Surg Social Fam HX - Past Medical History Medical history: arthritis, diabetes, hypertension Psychiatric history: depression - Past Surgical History Surgical History: other - Social History Smoking Status: Never smoker Smokeless Tobacco Status: No Alcohol use: none Drug use: none - Family History Father Hx Family Autoimmune Disorders: Yes (Lupus) Grandfather Hx Family Medical Disorders: Yes (DVT) Medications and Allergies SitaGLIPtin [Januvia] 100 mg PO DAILY 08/28/17 [History] Escitalopram [Lexapro] 20 mg PO DAILY 02/24/18 [History] 3 Allergy/AdvReac Type Severity Reaction Status Date / Time No Known Allergies Allergy Verified 02/24/18 12:16 All Systems Review: The remainder of the systems were reviewed and are negative Review of Systems: General - no recent weight loss, weight gain, fatigue or fevers Eyes - no redness, loss of vision, dryness/itching/foreign body sensation ENT - no dryness of mouth, oral ulcerations, nasal ulcerations, sore throat Cardiovascular - + chest pain, no palpitations, lightheadedness, syncope or arm/ leg claudication Respiratory - no shortness of breath, difficulty breathing at night, +pleuritic chest pain and no cough Gastrointestinal - no nausea, vomiting, diarrhea, bloating, black/tarry stools, blood in stools or heartburn Genitourinary - no pain on urination, hematuria, frothy urine or ulcerations. Musculoskeletal - + morning stiffness, + joint swelling, + muscle aches, tendon/ ligament swelling or tenderness and no inflammatory back pain Integumentary - no easy bruising, rashes, hives, photosensitivity, skin thickening, alopecia, color changes of hands. + tattoos Neurological - no muscle weakness or paresthesias Hematologic/lymphatic - no tender or swollen glands, history of anemia, + new blood clot Rheumatology Exam Vital Signs, Last 4 Hours Temp Pulse Resp BP Pulse Ox 02/24/18 16:10 97.8 F 91 16 126/78 97 02/24/18 13:20 99.4 F 82 16 128/85 97 Exam: General - Alert and oriented x 3, no acute distress and appears comfortable HEENT - Conjunctiva clear, no alopecia or hair thinning, no facial rash, no nasal or oral mucosal lesions/ulcerations Heme/Lymph - No cervical or supraclavicular lymph node enlargement or tenderness. No pallor. Heart - S1S2 regular in rate and rhythm without murmurs, clicks or rubs. No peripheral edema. Radial pulses exam deferred due to pain with palpation. Lungs - Unlabored breathing, clear to auscultation bilaterally without wheezes or crackles; no decrease in chest expansion Abdomen - Soft, nontender, nondistended. Obese and unable to palpate any hepatosplenomegaly Skin - No clubbing, nodules, tophi, psoriasis, erythema, petichiae, malar rash, telangiectasias, sclerodactyly, nail pitting, onycholysis, digital ulcers; + tattoos noted Neurological - Gait not assessed due to inpatient status, muscle strength 5/5 in all four extremities Musculoskeletal - Decreased ROM of wrists due to pain, + right wrist swelling, + right 2nd digit swelling, + left wrist swelling, no effusions to lower extremities. Rheumatology Results 02/24/18 09:37 02/24/18 09:37 Immunology Rheumatoid Factor < 10 IU/mL (Less than 14) 02/24/18 15:44 All other labs normal. Consult Discharge Plan - Plan Referrals: Jo-Ann Lauren, SAIL LAY OUT WORKER [Primary Care Provider] -
[2018-02-24] MEDS: predniSONE 20 MG TABLET PO SCH (18:48)
[2018-02-24] MEDS ORDERED: Perflutren Lipid Microsphere 1.3 ML in 0.9 % Sodium Chloride 8.7 ML IVP ONE (21:58)
[2018-02-25] MEDS: Heparin 25,000 UNIT/500 ML D5W 25,000 UNIT/500 ML BAG IVC SCH ×2 (00:45→10:21)
[2018-02-25 04:35] LABS: Basophils % 0.4 %; Hematocrit 39.5 % (37.5-50.1); Hemoglobin 13.5 g/dL (12.9-16.9); Immature Granulocytes % 0.4 % (0-4); Lymphocytes # 1.9 K/mcL (0.6-4.6); Lymphocytes % 25.5 %; Mean Corpuscular HGB Conc 34.2 g/dL (31.6-35.5); Mean Corpuscular Volume 84.9 fL (83.0-100.0); Mean Platelet Volume 9.1 fL (9.4-12.4); Monocytes # 0.3 K/mcL (0.0-1.3); Neutrophils # 5.2 K/mcL (1.6-8.9); Platelet Count 254 K/mcL (140-400); Red Blood Count 4.65 M/mcL (4.19-5.50); Red Cell Distribution Width 13.6 % (11.5-14.5); Segmented Neutrophils % 69.7 %
[2018-02-25 04:52] LABS: Alanine Aminotransferase 18 Units/L (7-52); Albumin 3.3 g/dL (3.5-5.7); Albumin/Globulin Ratio 0.8 (1.1-2.2); Alkaline Phosphatase 59 Units/L (34-104); Aspartate Amino Transferase 13 Units/L (13-39); BUN/Creatinine Ratio 15 (6-26); Bilirubin,Total 0.4 mg/dL (0.3-1.0); Blood Urea Nitrogen 9 mg/dL (6-20); Calcium 8.7 mg/dL (8.6-10.3); Carbon Dioxide 23 mEq/L (23-29); Chloride 104 mEq/L (98-107); Chol/HDL Ratio 4.5 (0-4.9); Cholesterol 141 mg/dL (< 200); Globulin 4.3 g/dL (2.4-3.5); Glucose 247 mg/dL (70-105); HDL Cholesterol 31 mg/dL (40-59); LDL Cholesterol,Calculated 96 mg/dL (0-99); Osmolality,Calculated 283 (280-300); Potassium 4.3 mEq/L (3.5-5.1); Sodium 133 mEq/L (136-145); Total Protein 7.6 g/dL (6.4-8.9); Triglycerides 69 mg/dL (< 150); eGFR For African Americans > 60 (> 60); eGFR For Non-African Americans > 60 (> 60)
[2018-02-25] MEDS: predniSONE 20 MG TABLET PO SCH (08:18)
--- NOTE | 2018-02-25 08:18 | Rheumatology Progress Note ---
<Ellen Jolly - Last Filed: 02/25/18 10:03> Date of Encounter: 02/25/18 Time of Encounter: 08:18 Rheumatology Assess and Plan (1) Inflammatory arthritis Current Visit: Yes Status: Acute 32 y M with PMH of HTN, DM presenting with new onset inflammatory arthritis, D- Dimer elevation with multifocal pulmonary emboli and multifocal right hilar adenopathy on on 02/24/18 CTA 02/24/18 : RF < 10, Uric Acid: 3.8, C-reactive protein 108, CK 95. Hepatitis C Ab Screen: Non-reactive Patient on prednisone therapy course Day 2 (2) On prednisone therapy Current Visit: Yes Status: Acute Patient status post prednisone 40 mg PO x 1. On prednisone day 2 Continue GI prophylaxis History of DM - recommend close monitoring of blood glucose levels (3) Pulmonary emboli Current Visit: Yes Status: Acute Hypercoagulable results pending. On anticoagulation currently. Patient endorses FMHX for DVT in grandfather onset in mid 50s, Lupus and Hemochromatosis (Father) Qualifiers: Pulmonary embolism type: other Chronicity: unspecified Acute cor pulmonale presence: without acute cor pulmonale Qualified Code(s): I26.99 - Other pulmonary embolism without acute cor pulmonale - Subjective Interval history: No acute events overnight. States he feels "great" this AM. Tolerating current diet without difficulty. Endorses improved ROM in bilateral upper extremities and back. Reports decreased pain in bilateral upper extremities following approx. 2 hrs of first administration of prednisone 40 mg x 1. Review of Systems Eyes -No vision changes overnight ENT - No oral ulcerations, no nasal ulcerations Cardiovascular - Denies chest pain, no palpitations Respiratory - No shortness of breath, no difficulty breathing at night, no pleuritic chest pain Gastrointestinal - no nausea, vomiting, diarrhea Genitourinary - no pain on urination, no hematuria, no frothy urine Musculoskeletal - + morning stiffness, decreased from yesterday, + joint swelling in R index finger, improved ROM in L hand, improved ROM in R hand, denies back pain, endorses continued decreased ability in element winding machine tender formation in R and L hand Integumentary - no bruising overnight, + tattoos Neurological - endorsees muscle weakness on L hand element winding machine tender Hematologic/lymphatic - + new blood clot Exam Vital Signs, Last 4 Hours Temp Pulse Resp BP Pulse Ox 02/25/18 08:09 97.5 F L 78 18 129/73 98 Exam: General - Alert and oriented x 3, no acute distress and appears comfortable HEENT - Conjunctiva clear, no alopecia or hair thinning, no facial rash Heart - Regular in rate and rhythm. No murmurs. Radial pulses exam intact bilaterally. Lungs - Unlabored breathing, clear to auscultation bilaterally, no wheezes or crackles Abdomen - Soft, normoactive bowel sounds, nontender, obese. No guarding. No rigidity. Skin - No clubbing, no nodules, no tophi, no psoriasis. No petechiae, malar rash , telangiectasias, no onycholysis, no digital ulcers; + tattoos noted Neurological - No dysarthria. Intact facial symmetry. Fine distal finger motion intact. Musculoskeletal - Full ROM of bilateral wrists, + right 2nd digit swelling, + right wrist swelling +left wrist swelling, +reduced element winding machine tender formation in right hand , +reduced element winding machine tender formation in left hand, no effusions to lower extremities, no crepitus to lower extremities. Objective Data 02/25/18 03:46 02/25/18 03:46 Immunology Rheumatoid Factor < 10 IU/mL (Less than 14) 02/24/18 15:44 Consult Discharge Plan - Plan Referrals: Jo-Ann Lauren, LORAINE [Primary Care Provider] - <Rolando García - Last Filed: 02/25/18 13:26> Date of Encounter: 02/25/18 Rheumatology Assess and Plan (1) Inflammatory arthritis Current Visit: Yes Status: Acute (2) Pulmonary emboli Current Visit: Yes Status: Acute Qualifiers: Pulmonary embolism type: other Chronicity: unspecified Acute cor pulmonale presence: without acute cor pulmonale Qualified Code(s): I26.99 - Other pulmonary embolism without acute cor pulmonale (3) On prednisone therapy Current Visit: Yes Status: Acute Exam Vital Signs, Last 4 Hours Temp Pulse Resp BP Pulse Ox 02/25/18 11:45 97.7 F 58 14 122/62 99 Objective Data 02/25/18 03:46 02/25/18 03:46 Immunology Rheumatoid Factor < 10 IU/mL (Less than 14) 02/24/18 15:44 All other labs normal. - Attending Attestation I examined this patient and my medical decision making was reviewed with the resident physician. I agree with the documented findings, disposition and treatment as described with these exceptions. Inflammatory arthritis improving; would recommend 20 mg x 2 weeks. Awaiting autoimmune serologies; will add complements, dsDNA On anticoagulation Discussed case with pulmonary medicine who is going to repeat imaging in regards to PE and lymphadenopathy as outpatient Will follow-up in ~ 2 weeks in clinic.
--- NOTE | 2018-02-25 11:15 | Pulmonology Progress Note ---
Date of Encounter: 02/25/18 Time of Encounter: 10:45 Assessment and Plan (1) Mediastinal lymphadenopathy Current Visit: Yes Status: Acute Patient Mediastinal Lymphadenopathy most likely reactive with inflammatory in nature most likely autoimmune disease once the PE is adequately controlled will repeat imaging as an outpatient decide whether he will need biopsy (2) Pulmonary emboli Current Visit: Yes Status: Acute Patient is on Heparin will leave to patient and primary to decide about the oral anticoagulants . Patient is hemodynamically stable without much cardiopulmonary symptoms Qualifiers: Pulmonary embolism type: other Chronicity: unspecified Acute cor pulmonale presence: without acute cor pulmonale Qualified Code(s): I26.99 - Other pulmonary embolism without acute cor pulmonale (3) Inflammatory arthritis Current Visit: Yes Status: Acute Patient is evaluated by rheumatology . (4) Sleep disorder breathing Current Visit: Yes Status: Acute Will need outpatient PSG. Subjective Principal diagnosis: Pulmonary embolism Interval history: Patient joint pain is lot better , denies any shortness of breadth , denies any chest pain or tightness , denies any hemoptysis , denies any palpitations , denies any syncope , denies any GERD or Neuro symptoms. Objective PUL Vital signs: Last Vital Signs Temp 97.5 F L 02/25/18 08:09 Pulse 78 02/25/18 08:09 Resp 18 02/25/18 08:09 BP 129/73 02/25/18 08:09 Pulse Ox 98 02/25/18 08:09 Auscultation: bilateral: clear Results - Laboratory Findings CBC and BMP: 02/25/18 03:46 02/25/18 03:46 PT/INR, D-dimer PT 13.6 Seconds (9.4-12.1) H 02/24/18 09:37 D-Dimer 4995 ng/mLFEU (0-500) H 02/24/18 09:37 Abnormal lab findings: Abnormal lab results MPV 9.1 fL (9.4-12.4) L 02/25/18 03:46 ESR 66 mm/hr (0-10) H 02/24/18 09:37 PT 13.6 Seconds (9.4-12.1) H 02/24/18 09:37 APTT 84.4 Seconds (26.0-36.0) H 02/25/18 09:31 D-Dimer 4995 ng/mLFEU (0-500) H 02/24/18 09:37 Sodium 133 mEq/L (136-145) L 02/25/18 03:46 Creatinine 0.61 mg/dL (0.70-1.30) L 02/25/18 03:46 Glucose 247 mg/dL (70-105) H 02/25/18 03:46 POC Glucose 111 mg/dL (70-99) H 02/24/18 21:08 C-Reactive Protein 108 mg/L (Less than 10) H 02/24/18 09:37 Albumin 3.3 g/dL (3.5-5.7) L 02/25/18 03:46 Globulin 4.3 g/dL (2.4-3.5) H 02/25/18 03:46 Albumin/Globulin Ratio 0.8 (1.1-2.2) L 02/25/18 03:46 HDL Cholesterol 31 mg/dL (40-59) L 02/25/18 03:46 Ur Specific [place] 1.030 (1.010-1.025) H 02/24/18 10:06 Urine Ketones Trace mg/dL (Negative) H 02/24/18 10:06 Urine Microscopic WBC 5-15 per hpf (0-3) H 02/24/18 10:06 Ur Squamous Epith Cells Many per lpf (None-Few) H 02/24/18 10:06 - Clinical Findings Intake & Output: Intake & Output 02/24/18 02/25/18 02/25/18 23:59 07:59 15:59 Intake Total 831 / 831 455 / 455 320 / 320 Output Total 0 / 0 Balance 831 / 831 455 / 455 320 / 320 Weight 170.8 kg Consult Discharge Plan - Plan Referrals: Jo-Ann Lauren, REVENUE ENFORCEMENT AGENT [Primary Care Provider] -
--- NOTE | 2018-02-25 12:27 | Electrocardiograph Report ---
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
[2018-02-25] MEDS: JANUVIA PO SCH (17:54)
--- NOTE | 2018-02-25 18:01 | Internal Med Progress Note ---
Date of Encounter: 02/25/18 Time of Encounter: 17:55 - Assessment and plan (1) Chest pain Current Visit: Yes Status: Acute Assessment and plan: Likely due to acute PE. Pt states improved while on heparin. Denies CP at this time. Qualifiers: Chest pain type: unspecified Qualified Code(s): R07.9 - Chest pain, unspecified (2) Morbid obesity with BMI of 45.0-49.9, adult Current Visit: Yes Status: Acute Assessment and plan: Life style modification such as diet and exercise recommended. 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 On Prednisone 40 mg QD. (4) Pulmonary emboli Current Visit: Yes Status: Acute Assessment and plan: Heparin gtt and will likely start on Xarelto. Qualifiers: Pulmonary embolism type: other Chronicity: unspecified Acute cor pulmonale presence: without acute cor pulmonale Qualified Code(s): I26.99 - Other pulmonary embolism without acute cor pulmonale (5) Mediastinal lymphadenopathy Current Visit: Yes Status: Acute Assessment and plan: Pt evaluated by pulmonology, see consult. Recommend out pt image follow up once inflammatory arthritis improves/resolves. PEr pulmonology if there is persistent hilar adenopathy folloing out pot repeat imaging, will consider doing EBUS TBNA. (6) Sleep disorder breathing Current Visit: Yes Status: Acute Assessment and plan: Recommend out pt sleep study - Time Spent With Patient Total time spent is greater than 50% in coordination of care (as documented) at patient's floor/unit and/or counseling patient: less than 15 minutes - Subjective Interval history: Pt denies chest pain or SOB. States his left arm was swollen but improved after being placed on steroids and believes it's due to PMR. He denies fever or chills. He denies constipation or diarrhea. - Constitutional Vitals: Temp Pulse Resp BP Pulse Ox 98.0 F 73 16 110/69 97 02/25/18 16:45 02/25/18 16:45 02/25/18 16:45 02/25/18 16:45 02/25/18 16:45 General appearance: Present: cooperative, mild distress, A&O X 3, morbidly obese , answers questions appropriately - Head Head exam: Present: atraumatic, normocephalic - Eye Eye exam: Present: PERRL, conjuntiva pink, sclera anicteric Pupils: Present: PERRL - Neck Neck exam general surgery: Present: supple, trachea midline. Absent: lymphadenopathy - Respiratory Respiratory exam: Present: CTAB. Absent: accessory muscle use, rales, rhonchi, wheezes - Cardiovascular Cardiovascular exam: Present: RRR, +S1, +S2. Absent: diastolic murmur, gallop, rubs, systolic murmur - GI/Abdominal GI/Abdominal exam: Present: normal bowel sounds, soft, no peritoneal signs. Absent: distended, tenderness - Extremities Exam Extremities exam: Present: warm, radial pulses palpable and symmetrical. Absent : calf tenderness, cyanotic, pedal edema - Neurological Exam Neurological exam: Present: CN II-XII intact, oriented X3, no focal deficits. Absent: pronater drift, facial droop, speech deficit - Skin Skin exam: Present: dry, intact Internal Medicine: Result - Labs CBC & Chem 7: 02/25/18 03:46 02/25/18 03:46 Labs: Short CBC 02/25/18 Range/Units 03:46 WBC 7.4 (4.3-11.1) K/mcL Hgb 13.5 (12.9-16.9) g/dL Hct 39.5 (37.5-50.1) % Plt Count 254 (140-400) K/mcL Neutrophils # 5.2 (1.6-8.9) K/mcL BMP 02/25/18 03:46 Sodium 133 L Potassium 4.3 Chloride 104 Carbon Dioxide 23 BUN 9 Creatinine 0.61 L Glucose 247 H Calcium 8.7 Cardiac Enzymes 02/24/18 Range/Units 21:54 Troponin I < 0.03 (< 0.04) ng/mL Liver Function 02/25/18 Range/Units 03:46 Total Bilirubin 0.4 (0.3-1.0) mg/dL AST 13 (13-39) Units/L ALT 18 (7-52) Units/L Alkaline Phosphatase 59 (34-104) Units/L Albumin 3.3 L (3.5-5.7) g/dL - ABG Interpretation ABG results: PT/INR, D-dimer PT 13.6 Seconds (9.4-12.1) H 05/29/18 09:37 D-Dimer 4995 ng/mLFEU (0-500) H 02/24/18 09:37 - Impressions Impressions Echocardiogram 02/24/18 12:06 Impressions: LVEF 65%. Normal left ventricular diastolic function. Definity echo contrast was used. Normal right ventricular structure and function. No significant valvular dysfunction. Unable to estimate RVSP - suboptimal TR signal. Left Ventricular Wall Motion: Rest Echo Findings All wall segments showed normal motion. Findings: Study Quality * Technically challenging due to body habitus. ECG Findings * Normal sinus rhythm. Left Ventricle * LVEF 65%. * Normal left ventricular diastolic function. * Normal LV chamber size, wall thickness and function. * Definity echo contrast was used. Right Ventricle * Normal right ventricular structure and function. Left Atrium * Normal left atrial size. Right Atrium * Normal right atrial size. Aortic Valve * No aortic regurgitation. * Aortic valve not well visualized. * No aortic stenosis. Mitral Valve * No mitral regurgitation. * No mitral stenosis. * Mitral valve not well visualized. Tricuspid Valve * Tricuspid valve not well visualized. * No tricuspid regurgitation. * Estimated RA pressure is 3 mmHg. Pulmonic Valve * Pulmonic valve is not well visualized. * No pulmonic stenosis. * No pulmonic regurgitation. Pulmonary Artery * Pulmonary artery not well visualized. Aorta * Not well visualized. Pericardium * There is no pericardial effusion present. Interatrial Septum * No evidence of PFO by color Doppler. IVC * Normal IVC dimensions and inspiratory collapse. Consult Discharge Plan - Plan Referrals: Jo-Ann Lauren, LORAINE [Primary Care Provider] -
[2018-02-25] MEDS: *HR* Rivaroxaban 15 MG TABLET PO SCH (20:45)
[2018-02-26 07:07] VITALS: BP 108/72
--- NOTE | 2018-02-26 09:53 | Internal Med Progress Note ---
Date of Encounter: 02/26/18 Time of Encounter: 09:55 - Assessment and plan (1) Chest pain Current Visit: Yes Status: Acute Qualifiers: Chest pain type: unspecified Qualified Code(s): R07.9 - Chest pain, unspecified (2) Morbid obesity with BMI of 45.0-49.9, adult Current Visit: Yes Status: Acute (3) Polymyalgia Current Visit: Yes Status: Acute (4) Pulmonary emboli Current Visit: Yes Status: Acute Qualifiers: Pulmonary embolism type: other Chronicity: unspecified Acute cor pulmonale presence: without acute cor pulmonale Qualified Code(s): I26.99 - Other pulmonary embolism without acute cor pulmonale (5) Mediastinal lymphadenopathy Current Visit: Yes Status: Acute (6) Sleep disorder breathing Current Visit: Yes Status: Acute - Time Spent With Patient Total time spent is greater than 50% in coordination of care (as documented) at patient's floor/unit and/or counseling patient: - Subjective Interval history: Pt denies chest pain or SOB. States his left arm was swollen but improved after being placed on steroids and believes it's due to PMR. He denies fever or chills. He denies constipation or diarrhea. - Constitutional Vitals: Temp Pulse Resp BP Pulse Ox 97.4 F L 76 17 108/72 95 02/26/18 07:01 02/26/18 07:01 02/26/18 07:01 02/26/18 07:01 02/26/18 07:01 General appearance: Present: cooperative, mild distress, A&O X 3, morbidly obese , answers questions appropriately Internal Medicine: Result - Labs CBC & Chem 7: 02/25/18 03:46 02/25/18 03:46 - ABG Interpretation ABG results: PT/INR, D-dimer PT 13.6 Seconds (9.4-12.1) H 02/24/18 09:37 D-Dimer 4995 ng/mLFEU (0-500) H 02/24/18 09:37 - Impressions Impressions Forearm X-Ray 02/24/18 13:33 IMPRESSION: Dorsal soft tissue swelling in the wrist. No osseous abnormality in the left wrist or left forearm. D/ / 02/24/2018 16:25:19 Aldair Valdivia MD / maynor Interpreting Provider: Aldair Valdivia MD Wrist X-Ray 02/24/18 13:33 IMPRESSION: Dorsal soft tissue swelling in the wrist. No osseous abnormality in the left wrist or left forearm. D/ / 02/24/2018 16:25:19 Aldair Valdivia MD / maynor Interpreting Provider: Aldair Valdivia MD Consult Discharge Plan - Plan Referrals: Jo-Ann Lauren, LORAINE [Primary Care Provider] - Rolando García DO [Partnered Physician] - 03/10/18 10:45 am ([facility] [address])
[2018-02-26] MEDS: predniSONE 20 MG TABLET PO SCH (10:07)
[2018-02-26] MEDS: *HR* Rivaroxaban 15 MG TABLET PO SCH (10:07)
[2018-02-26] MEDS: JANUVIA PO SCH (10:07)
--- NOTE | 2018-02-26 13:46 | Discharge Summary ---
Orders not resulted at time of discharge: Pending orders 02/24/18 15:44 TIAGO Titer by IFA Stat Antiphospholipid Ab High Spec Stat Antithrombin III, Activity Stat CCP IgG Routine Factor V Leiden Stat Lupus Anticoagulant Panel Stat Protein C Antigen, Total Stat Protein S Antigen, Total Stat VDRL Stat 02/24/18 15:49 Beta-2 Glycoprotein 1 IgG, IgM Routine Cardiolipin IGG & IGM Routine Parvovirus B19, IgM Routine 02/25/18 16:23 Anti-DNA DS, IgG with reflex Routine Complement Component 3 Routine Complement Component 4 Routine Date of Encounter: 02/26/18 Time of Encounter: 01:40 - Discharge Diagnosis (1) Chest pain Priority: Secondary Status: Acute Assessment and Plan: Resolved once pt started on Heparin. CP due to PE Reviewed EKG showed NSR, and incomplete RBBB. Troponin negative x 3. 2 D Echo ordered LVEF 65% and normal. RVSP unable ot estimate due to limitations of study related to pt's body habitus Qualifiers: Chest pain type: unspecified Qualified Code(s): R07.9 - Chest pain, unspecified (2) Morbid obesity with BMI of 45.0-49.9, adult Priority: Secondary Status: Acute Assessment and Plan: Life style modification such as diet and exercise recommended. 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 (4) Pulmonary emboli Priority: Primary Status: Acute Assessment and Plan: Will discharge pt on Xarelto as recommended by pulmonology. Denies Fmhx of PE or DVT that he is aware of of. Explained to pt that he may need to be on life time anticoagulation if PE recurs. Echo 02/24/2018 Impressions: LVEF 65%. Normal left ventricular diastolic function. Definity echo contrast was used. Normal right ventricular structure and function. No significant valvular dysfunction. Unable to estimate RVSP - suboptimal TR signal. Qualifiers: Pulmonary embolism type: other Chronicity: unspecified Acute cor pulmonale presence: without acute cor pulmonale Qualified Code(s): I26.99 - Other pulmonary embolism without acute cor pulmonale (5) Mediastinal lymphadenopathy Priority: Secondary Status: Acute Assessment and Plan: Pt evaluated by pulmonology, see consult. Recommend out pt image follow up once inflammatory arthritis improves/resolves. PEr pulmonology if there is persistent hilar adenopathy folloing out pot repeat imaging, will consider doing EBUS TBNA. (6) Sleep disorder breathing Priority: Secondary Status: Acute Assessment and Plan: Out pt sleep study recommended. Hospital course: Mr. Kincaid is a 32 year old male morbidly obese patient with no significant past medical history presented emergency room with one week history of multiple joint pain including wrist, bilateral knees and hips which is progressively worsening. Patient also mentioned that from last couple of days has been having chest pain located in the right chest wall region worsening with the deep inspiration. He did have some nausea but denied of any vomiting since. He denied of any recent travel history. He mentioned family history of lupus his father and blood clots in his grandfather. He denied of any melena, bright red blood per rectum and hematemesis. HE was tarted on heparin gtt and was evaluated by pulmonology. He will be discharged on Xarelto and his to f/u ouht with PCP following his discharge. Chest CTA also noted mediastinal lymphadenopathy and he has been advised to f/u with pulmonology out pt for repeat imaging as this could possibly be related to inflammatory reaction. - Time Spent with Patient Total time spent providing and/or coordinating discharge services: Greater than 30 minutes - Discharge Medications Prescriptions: Rivaroxaban [Xarelto] 15 mg PO BID 21 Days #40 tablet Rivaroxaban [Xarelto] 20 mg PO DAILY 30 Days #30 tablet Home Medications: SitaGLIPtin [Januvia] 100 mg PO DAILY 08/28/17 [History] Escitalopram [Lexapro] 20 mg PO DAILY 02/24/18 [History] Rivaroxaban [Xarelto] 15 mg PO BID 21 Days #40 tablet 02/26/18 [Rx] Rivaroxaban [Xarelto] 20 mg PO DAILY 30 Days #30 tablet 02/26/18 [Rx] Allergies/Adverse Reactions: 3 Allergy/AdvReac Type Severity Reaction Status Date / Time No Known Allergies Allergy Verified 02/24/18 12:16 Date of admission: 02/24/18 11:55 Primary care physician: Jo-Ann Lauren CNP Consults: 02/24/18 12:02 Consult to Pulmonology [CONS] Routine Consulting Provider: [facility] Reason for Consult: Multi focal PE and possible infarction Time Notified: 12:04 Call Completed: Yes Consult to Rheumatology [CONS] Routine Consulting Provider: Rolando García Reason for Consult: Poly myalgia rheumatica Time Notified: 12:05 Call Completed: Yes 02/24/18 13:56 Consult to Nutrition [CONS] Routine Comment: Consulting Provider: NUTRITION Reason for Dietary Consult: MST Score Discharging clinician: Oliva Hannah Anticipated date of discharge: 02/26/18 - Constitutional Vitals: Temp Pulse Resp BP Pulse Ox 97.4 F L 76 17 108/72 95 02/26/18 07:01 02/26/18 07:01 02/26/18 07:01 02/26/18 07:01 02/26/18 07:01 General appearance: Present: cooperative, mild distress, A&O X 3, morbidly obese , answers questions appropriately - Head Head exam: Present: atraumatic, normocephalic - Eye Eye exam: Present: PERRL, conjuntiva pink, sclera anicteric Pupils: Present: PERRL - Neck Neck exam general surgery: Present: supple, trachea midline. Absent: lymphadenopathy - Respiratory Respiratory exam: Present: CTAB. Absent: accessory muscle use, rales, rhonchi, wheezes - GI/Abdominal GI/Abdominal exam: Present: normal bowel sounds, soft, no peritoneal signs. Absent: distended, tenderness - Extremities Exam Extremities exam: Present: warm, radial pulses palpable and symmetrical. Absent : calf tenderness, cyanotic, pedal edema - Neurological Exam Neurological exam: Present: CN II-XII intact, oriented X3, no focal deficits. Absent: pronater drift, facial droop, speech deficit - Skin Skin exam: Present: dry, intact - Patient Status Disposition: Home, Self-Care Condition: Good Overall status at discharge: patient is back to baseline - Discharge Instructions Instructions: Pulmonary Embolism (DC), Chest Pain (DC) Follow Up With: Jo-Ann Lauren, LORAINE [Primary Care Provider] - Rolando García DO [Partnered Physician] - 03/10/18 10:45 am [place] [place] [address] - Diet and Activity Activity: increase activity as tolerated Diet: advance to your usual diet
[2018-02-26 20:43] LABS: APTT (LE Anticoag) 81 sec (32-48); Diluted Russell Viper Venom 33 sec (33-44); LE APTT D Heparin Neutralized 52 sec (32-48); LE Coag APTT Mixing 47 sec (32-48); LE Coag Reptilase Time 18.8 sec (<=21.9); PT (LE-Anticoag) 15.4 sec (12.0-15.5); Thrombin Time 29.5 sec (14.7-19.5)
[2018-02-27 20:04] LABS: FACV Specimen WHOLE BLOOD
[2018-03-02 07:13] LABS: Antiphospholipid IgG High Spec 14 GPL (0-14); Antiphospholipid IgM High Spec 15 MPL (0-14)
[2018-03-02 07:14] LABS: Fac V Leiden R506Q Mut Result NEGATIVE
[2018-03-02 07:17] LABS: Complement Component 3 141 mg/dL (88-201); Complement Component 4 22 mg/dL (10-40)
== END 2018-02-26 14:55 | disposition home or self-care (01) | DRG 134 ==
LOC: EMEROO 09:17 → 2ANU 11:55
PROVIDERS: ADMIT Family Medicine; ATTEND Family Medicine

== ENCOUNTER 2020-01-12 15:56 | Inpatient (IN) ==
[2020-01-12 17:00] LABS: Basophils % 0.3 %; Eosinophils # 0.1 K/mcL (0.0-0.6); Eosinophils % 0.9 %; Hematocrit 45.4 % (37.5-50.1); Hemoglobin 15.5 g/dL (12.9-16.9); Immature Granulocytes % 0.4 % (0-4); Lymphocytes # 2.1 K/mcL (0.6-4.6); Mean Corpuscular HGB Conc 34.1 g/dL (31.6-35.5); Mean Corpuscular Hemoglobin 30.4 pg (28.0-33.3); Mean Platelet Volume 9.1 fL (9.4-12.4); Monocytes # 0.5 K/mcL (0.0-1.3); Monocytes % 6.4 %; Platelet Count 253 K/mcL (140-400); White Blood Count 7.7 K/mcL (4.3-11.1)
[2020-01-12 17:01] LABS: Bilirubin,Urine Small (Negative); Blood,Urine Negative (Negative); Clarity,Urine Clear (Clear); Color,Urine Dark Yellow (Yellow); Glucose,Urine (UA) >=1000 mg/dL (Normal); Ketones,Urine 15 mg/dL (Negative); Leukocyte Esterase,Urine Negative (Negative); Nitrite,Urine Negative (Negative); PH,Urine 5.5 pH Units (5.0-8.0); Protein,Urine Trace mg/dL (Neg-Trace); Specific Gravity,Urine > 1.030 (1.010-1.025); Urobilinogen,Urine Normal (Normal)
[2020-01-12 17:17] LABS: Amphetamine Screen,Urine Negative ng/mL (Cutoff=1000); Barbiturate Screen,Urine Positive ng/mL (Cutoff=200); Benzodiazepines Screen,Urine Negative ng/mL (Cutoff=200); Cannabinoid Screen,Urine Negative ng/mL (Cutoff = 50); Cocaine Screen,Urine Negative ng/mL (Cutoff= 300); Opiate Screen,Urine Negative ng/mL (Cutoff=300); Phencyclidine Screen,Urine Negative ng/mL (Cutoff=25)
[2020-01-12 17:24] LABS: Acetaminophen < 10 mcg/mL (10-20); BUN/Creatinine Ratio 12 (6-26); Blood Urea Nitrogen 9 mg/dL (6-20); Calcium 8.7 mg/dL (8.6-10.3); Carbon Dioxide 26 mEq/L (23-29); Chloride 102 mEq/L (98-107); Ethanol < 10 mg/dL (Less than 10); Glucose 271 mg/dL (70-105); Osmolality,Calculated 286 (280-300); Potassium 4.1 mEq/L (3.5-5.1); Salicylate < 2.5 mg/dL (15.0-30.0); Sodium 134 mEq/L (136-145); eGFR For African Americans > 60 (> 60); eGFR For Non-African Americans > 60 (> 60)
[2020-01-12] MEDS ORDERED: *HR* LORazepam 1 MG TABLET PO PRN (19:01)
[2020-01-12] MEDS ORDERED: Acetaminophen 325 MG TABLET PO PRN (19:01)
[2020-01-12] MEDS ORDERED: *HR* LORazepam 2 MG/ML VIAL IM PRN (19:01)
[2020-01-12] MEDS ORDERED: Haloperidol Lactate 5 MG/ML VIAL IM PRN (19:01)
[2020-01-12] MEDS ORDERED: traZODone 50 MG TABLET PO PRN (19:01)
[2020-01-12] MEDS ORDERED: MOM Conc 10 ML UD.LIQ PO PRN (19:01)
[2020-01-12] MEDS ORDERED: Mag Hydrox/Al Hydrox/Simeth 30 ML UDC PO PRN (19:01)
[2020-01-12] MEDS ORDERED: haloperidoL 5 MG TABLET PO PRN (19:01)
[2020-01-12] MEDS ORDERED: hydrOXYzine pamoate 25 MG CAPSULE PO PRN (19:01)
[2020-01-12] MEDS ORDERED: Dextrose Gel 15 GM/37.5 ML TUBE PO PRN ×2 (19:04)
[2020-01-12] MEDS ORDERED: Acetaminophen/Butalbital/CaffeineTABLET PO PRN (19:06)
[2020-01-12] MEDS ORDERED: tiZANidine 4 MG TABLET PO PRN (19:06)
[2020-01-12] MEDS: clonazePAM 1 MG TABLET PO SCH (20:39)
[2020-01-13] MEDS: *HR* Rivaroxaban 10 MG TABLET PO SCH (08:40)
[2020-01-13] MEDS: clonazePAM 1 MG TABLET PO SCH ×2 (08:40→21:54)
[2020-01-13] MEDS: *HR* SitaGLIPtin 100 MG TABLET PO SCH (08:40)
[2020-01-13] MEDS: BuPROPion XL (24 HR) 150 MG TABLET PO SCH (18:22)
[2020-01-14] MEDS: clonazePAM 1 MG TABLET PO SCH ×2 (08:47→20:40)
[2020-01-14] MEDS: BuPROPion XL (24 HR) 150 MG TABLET PO SCH (08:47)
[2020-01-14] MEDS: *HR* Rivaroxaban 10 MG TABLET PO SCH (08:47)
[2020-01-14] MEDS: *HR* SitaGLIPtin 100 MG TABLET PO SCH (08:47)
[2020-01-15] MEDS: *HR* SitaGLIPtin 100 MG TABLET PO SCH (09:16)
[2020-01-15] MEDS: clonazePAM 1 MG TABLET PO SCH (09:16)
[2020-01-15] MEDS: *HR* Rivaroxaban 10 MG TABLET PO SCH (09:17)
[2020-01-15] MEDS: BuPROPion XL (24 HR) 150 MG TABLET PO SCH (09:17)
[2020-01-15 09:26] VITALS: BP 113/59
== END 2020-01-15 10:00 | disposition home or self-care (01) | DRG 751 ==
LOC: EMEROOARM 15:56 → 1ANU 18:55
PROVIDERS: ADMIT Psychiatry & Neurology Psychiatry; ATTEND Psychiatry & Neurology Psychiatry